=== PATIENT | male | born 1955 | race African-American/Black ===

== ENCOUNTER 2018-01-24 07:33 | Emergency (ER) | payer OTHER ==
[~2018-01-24] VITALS: Ht 172.7 cm; Wt 66.7 kg
[2018-01-24] MEDS ORDERED: Isovue-300 100ml vial INJ PRN (08:00)
[2018-01-24] MEDS ORDERED: Ketorolac 30mg Inj IV ONE (08:15)
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
[2018-01-24 08:32] LABS: BASOPHILS % (AUTO) 1.6 % (0.0-2.0); EOSINOPHILS % (AUTO) 1.8 % (0.0-3.0); HEMATOCRIT 45.9 % (42.0-52.0); HEMOGLOBIN 14.8 G/DL (14.2-18.0); LYMPHOCYTES % (AUTO) 22.3 % (20.0-45.0); MEAN CORPUSCULAR VOLUME 86 FL (80-99); MONOCYTES % (AUTO) 8.5 % (1.0-10.0); NEUTROPHILS % (AUTO) 65.8 % (45.0-75.0); PLATELET COUNT 263 K/UL (150-450); RED BLOOD COUNT 5.33 M/UL (4.70-6.10); RED CELL DISTRIBUTION WIDTH 12.1 % (11.6-14.8); WHITE BLOOD COUNT 5.9 K/UL (4.8-10.8)
[2018-01-24 08:36] LABS: APPEARANCE,URINE CLEAR; BILIRUBIN, URINE NEGATIVE (NEGATIVE); GLUCOSE, URINE (UA) NEGATIVE (NEGATIVE); KETONES,URINE NEGATIVE (NEGATIVE); LEUKOCYTE ESTERASE ,URINE NEGATIVE (NEGATIVE); NITRITE,URINE NEGATIVE (NEGATIVE); PH,URINE 6 (4.5-8.0); PROTEIN,URINE NEGATIVE (NEGATIVE); UROBILINOGEN,URINE NORMAL MG/DL (0.0-1.0)
[2018-01-24 08:42] LABS: COLOR,URINE YELLOW
[2018-01-24 08:44] LABS: INR 1.1 (0.9-1.1)
[2018-01-24 08:48] LABS: ANION GAP 4 mmol/L (5-15); BLOOD UREA NITROGEN 12 mg/dL (7-18); CALCIUM 9.3 MG/DL (8.5-10.1); CARBON DIOXIDE 32 MMOL/L (21-32); CHLORIDE 105 MMOL/L (98-107); CREATININE 1.3 MG/DL (0.55-1.30); POTASSIUM 3.8 MMOL/L (3.5-5.1); SODIUM 141 MMOL/L (136-145)
[2018-01-24 08:53] LABS: ALANINE AMINOTRANSFERASE 24 U/L (12-78); ALBUMIN 3.9 G/DL (3.4-5.0); ALKALINE PHOSPHATASE 70 U/L (46-116); ASPARTATE AMINO TRANSFERASE 17 U/L (15-37); BILIRUBIN,TOTAL 0.4 MG/DL (0.2-1.0)
--- NOTE | 2018-01-24 09:34 | Diagnostic Imaging Report ---
Indication: Abdominal pain Technique: Continuous helical transaxial imaging of the abdomen and pelvis was obtained from the lung bases to the pubic symphysis during intravenous contrast administration. Coronal 2-D reformats were also obtained. Study obtained in a Siemens sensation [address] Automatic Exposure Control was utilized. Total Dose length Product (DLP): 602.[address] Dose Index Volume (CTDIvol): 12.33 mGy Comparison: None Findings: Lung bases are clear. Tiny hypodensity in the upper part of the liver too small to characterize. There is a right renal cyst. Stomach is nondistended. Evaluation of the enteric structures limited on this study done without oral contrast material. There is no obvious evidence for bowel obstruction. Questionable mild thickening of the wall of the rectum noted. No evidence of fecal impaction. The appendix is normal. No obvious hydronephrosis or renal stones are identified. The pancreas, spleen and gallbladder are unremarkable. No free fluid or free air identified. The bladder is nondistended. IMPRESSION: Questionable thickening of the wall the rectum. Correlate clinically for proctitis. There is no fecal impaction or other apparent reason for this. Right renal cyst The CT scanner at [facility] is accredited by the [employer] and the scans are performed using dose optimization techniques as appropriate to a performed exam including Automatic Exposure control.
[2018-01-24 09:39] VITALS: BP 146/93
[2018-01-24] MEDS ORDERED: IBUPROFEN800 MG ORAL (10:00)
[2018-01-24] MEDS ORDERED: ACETAMINOPHEN-1 EAC1 ORAL (10:00)
[2018-01-24 10:28] VITALS: BP 127/88
== END 2018-01-24 10:46 | disposition home or self-care (01) ==
LOC: EMR 08:05
DX: S22.41XA Multiple fractures of ribs, right side, initial encounter for closed fracture (principal); W50.0XXA Accidental hit or strike by another person, initial encounter; Y92.89 Other specified places as the place of occurrence of the external cause; N28.1 Cyst of kidney, acquired
CPT/HCPCS: 36415; 74177; 80053; 81003; 85025; 85610; 85730; 96361; 96374; 99284; J1885; Q9967